=== PATIENT | male | born 1975 | race Two or more races ===

== ENCOUNTER 2019-07-16 09:59 | Emergency (ER) | payer MEDICAID ==
[~2019-07-16] VITALS: Ht 172.7 cm; Wt 74.2 kg
--- NOTE | 2019-07-16 10:57 | NUR ---
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
--- NOTE | 2019-07-16 10:58 | NUR ---
ASSUMED PRIMARY CARE OF PT: PT PRESENTED TO ED D/T TROUBLE FOCUSING AND JOINT PAIN SINCE OCTOBER 2018. PT STATED HAD A "ONE NIGHT STAND" IN OCTOBER OF 2018 AND HAS HAD PREVIOUS TESTING FOR HIV AND WAS NEGATIVE. PT STATED STILL HAVE NOT FELT RIGHT SINCE THEN.
--- NOTE | 2019-07-16 11:38 | NUR ---
PT RESTING COMFORTABLY ON GURNEY. NO COMPLAINTS AT THIS TIME. AWAITING CT SCAN.
[2019-07-16 11:46] LABS: BASOPHILS # (AUTO) 0.02 x10^3/uL (0-0.1); BASOPHILS % (AUTO) 0 % (0-1); EOSINOPHILS # (AUTO) 0.06 x10^3/uL (0-0.4); EOSINOPHILS % (AUTO) 1 % (1-7); LYMPHOCYTES # (AUTO) 1.22 x10^3/uL (1-3.4); LYMPHOCYTES % (AUTO) 20 % (22-44); MD NO; MEAN CORPUSCULAR HEMOGLOBIN 29.1 pg (27.5-34.5); MEAN CORPUSCULAR HGB CONC 33.9 g/dL (33.2-36.2); MEAN CORPUSCULAR VOLUME 85.8 fL (81-97); MEAN PLATELET VOLUME 6.9 fL (7.4-10.4); MONOCYTES % (AUTO) 7 % (2-9); NEUTROPHILS # (AUTO) 4.39 x10^3/uL (1.8-6.8); NEUTROPHILS % (AUTO) 72 % (42-75); PLATELET COUNT 260 x10^3/uL (130-400); RED BLOOD COUNT 5.54 x10^6/uL (4.38-5.82); RED CELL DISTRIBUTION WIDTH 12.9 % (9.4-14.8)
[2019-07-16 11:57] LABS: ALANINE AMINOTRANSFERASE 25 U/L (12-78); ALBUMIN 3.8 g/dL (3.4-5.0); ANION GAP 4 mmol/L (5-15); CHLORIDE 112 mmol/L (98-107); CREATININE 1.02 mg/dL (0.7-1.3)
[2019-07-16 12:00] LABS: ALKALINE PHOSPHATASE 85 U/L (45-117); BILIRUBIN,TOTAL 0.9 mg/dL (0.2-1.0); TOTAL PROTEIN 7.7 g/dL (6.4-8.2)
[2019-07-16 12:33] VITALS: BP 114/68
[2019-07-16 12:33] LABS: HCT (SEDRATE) 47.5 % (39.2-51.8)
--- NOTE | 2019-07-16 14:07 | NUR ---
Patient/Caregiver given discharge instructions and they have confirmed that they understand the instructions. Patient ambulatory with steady gait.
== END 2019-07-16 14:10 | disposition home or self-care (01) ==
LOC: ED 12:40
DX: R53.1 Weakness (principal); R51 Headache
CPT/HCPCS: 36415; 70450; 80053; 85025; 85651; 99284